=== PATIENT | female | born 1995 | race Hispanic/Latino ===

== ENCOUNTER 2022-12-08 09:38 | Emergency (ER) | payer BC, SELFPAY ==
[2022-12-08] VITALS (19 sets, daily range): BP systolic 100–113; BP diastolic 60–71; PULSE 67–86; RESP 16–18; TEMP 36.1; O2SAT 97–100
--- NOTE | ~2022-12-08 | US_ITS ---
EXAMINATION: US OB <= 14 weeks fetus DATE: 12/08/2022 14:03 INDICATION: Vaginal bleeding. TECHNIQUE: Real-time transabdominal pelvic ultrasound was performed. COMPARISON: None. FINDINGS: The uterus measures 10.1 x 7.7 x 7.5 cm. There is an intrauterine gestational sac. A yolk sac is iden tified. The crown rump length measures 2.7 cm, which correlates with an estimated gestational age of 9 weeks and 3 day(s) (+/-) 6 day(s). heart motion is identified measuring 169 beats per minute (bpm) by M-mode Doppler. There is a small subchorionic hematoma. The right ovary is not visual ized. The left ovary measures 3.2 x 1.9 x 1.7 cm. There is no free fluid in the pelvis. IMPRESSION: 1. Single living intrauterine gestation with estimated date of delivery of 07/10/23. 2. Small subchorionic hematoma. Reviewed, dictated and finalized at location A. IMPRESSION: 1. Single living intrauterine gestation with estimated date of delivery of 07/10. 2. Small subchorionic hematoma.
[2022-12-08 11:47] LABS: Basophils Percent Auto 0.3 % (0.2-1.2); Eosinophils Absolute Auto 0.5 K/mm3 (0-0.3); Eosinophils Percent Auto 5.7 % (0-4.4); Hematocrit 36.1 % (37.0-47.0); Hemoglobin 12.7 g/dL (12.0-15.0); Immature Granulocyte Absolute 0.04 K/mm3 (0.00-0.031); Immature Granulocyte Percent A 0.5 % (0-0.5); Lymphocytes Absolute Auto 2.23 K/mm3 (0.9-3.2); Lymphocytes Percent Auto 28.2 % (18.3-44.2); Mean Corpuscular HGB Conc 35.2 g/dl (32-36); Mean Corpuscular Hemoglobin 30.8 pg (26-34); Mean Corpuscular Volume 87.6 fl (80-100); Monocytes Absolute Auto 0.5 K/mm3 (0.1-0.6); Monocytes Percent Auto 5.9 % (2.6-8.5); Neutrophils Absolute Auto 4.7 K/mm3 (1.3-6.7); Neutrophils Percent Auto 59.4 % (45.5-73.1); Platelet Count Result 254 k/mm3 (150-375); Red Blood Count 4.12 M/mm3 (4.2-5.4); Red Cell Distribution Width 12.3 % (11.5-14.5); White Blood Count 7.9 K/mm3 (4.5-10.0)
--- NOTE | 2022-12-08 14:02 | ED.PREGNANCY ---
HPI - General Chief complaint: Vaginal Bleeding Stated complaint: vag bleed Time Seen by Provider: 12/08/22 11:52 Source: patient and RN notes reviewed Mode of arrival: ambulatory Limitations: language barrier (swazi speaking, stratus video grill associate used) History of Present Illness HPI Narrative: This is a 27 year old female who presents for evaluation of vaginal bleeding with positive test. Patient reports she had positive test 1 week ago. Today she noticed small amount of vaginal bleeding with abdominal cramping. She denies nausea, vomiting, fever. She denies passing clots. She denies dizziness. She has not care yet. Related Data Allergies Allergy/AdvReac Type Severity Reaction Status Date / Time No Known Allergies Allergy Verified 12/08/22 11:38 Review of Systems Review of Systems: All systems reviewed & are unremarkable except as noted in HPI and below PMFSH Past Medical History Medical History (Updated 12/08/22 @ 15:26 by Rima Meza MD) Patient denies medical problems Surgical History Surgical History (Updated 12/08/22 @ 14:06 by Rima Meza MD) No pertinent past surgical history Social History Social History (Updated 12/08/22 @ 14:06 by Rima Meaz MD) Smoking status: Never smoker Exam Const: General: no acute distress and alert Nutritional Appearance: well nourished Orientation/consciousness: patient oriented x3 HENMT: Head: normal to inspection Eyes: EOM: EOMs intact bilaterally Neck: Neck: normal visual inspection Chest: Chest palpation & inspection: normal inspection of the chest Resp: Effort & Inspection: normal respiratory effort Auscultation: clear to auscultation bilaterally Cardio: Rate: regular rate Rhythm: regular rhythm Heart sounds: no murmurs GI: GI Palp: Yes Soft to palpation, No Tenderness to palpation present (GI), No Guarding due to palpation present (GI), No Rigid due to palpation and No Hernia present Auscultation: normal bowel sounds : Other: deferred by patient. Back/Spine/Pelvis: Back: no CVA tenderness Skin: General skin exam: normal color Rashes: no rashes Wounds: no wounds Neuro: General: patient oriented x3, moves all extremities and CN's II-XI intact bilaterally Extrem: General: normal to inspection Psych: Mental Status: mental status grossly normal Affect: normal affect Attitude: cooperative Course Reevaluation(s) Reevaluation #1: I discussed with patient and US finding. I discussed bleeding precautions and pelvis rest. 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 Patient already full dressed so unable to do pelvic exam . She denies bleeding. Date: 12/08/22 Time: 15:21 Vital Signs Vital signs: Vital Signs Temperature 96.9 F L 12/08/22 09:46 Pulse Rate 86 12/08/22 09:46 Respiratory Rate 16 12/08/22 09:46 Blood Pressure 112/61 12/08/22 09:46 Pulse Oximetry 98 12/08/22 09:46 Oxygen Delivery Room Air 12/08/22 09:46 Temperature 96.9 F L 12/08/22 09:46 Pulse Rate 67 12/08/22 11:36 Respiratory Rate 18 12/08/22 11:36 Blood Pressure 110/64 12/08/22 13:46 Pulse Oximetry 100 12/08/22 14:31 Oxygen Delivery Room Air 12/08/22 09:46 MDM - OB/Uterine Contractions MDM Narrative Medical decision making narrative: cbc stable, no significant blood loss. Rh positive so no rhogam needed. Differential Diagnosis Differential diagnosis: Likely other (miscarriage, missed , threatened miscarriage, pancreatitis, subchorinic hemorrhage) Lab Data Attestation: I reviewed the patient's lab results. 12/08/22 11:40 Labs: Lab Results 12/08/22 12/08/22 Range/Units 11:40 15:01 WBC 7.9 (4.5-10.0) K/mm3 RBC 4.12 L (4.2-5.4) M/mm3 Hgb 12.7 (12.0-15.0) g/dL Hct 36.1 L (37.0-47.0) % MCV 87.6 (80-100) fl MCH 30.8 (26-34) pg MCHC 35.2 (32-36) g/dl RDW 1
[2022-12-08 14:55] LABS: Lipase 43 U/L (23-300)
[2022-12-08 15:17] LABS: Appearance Urine Clear (Clear); Bacteria Urine None Seen /hpf; Bilirubin Urine 1+ (Negative); Blood Urine 2+ (Negative); Color Urine Dark Yellow (Yellow); Glucose Urine UA Negative (Negative); Ketones Urine Negative (Negative); Leukocyte Esterase Ur Trace LEU/UL (Negative); Nitrate Urine Negative (Negative); Non Pathogenic Casts 0-2; Protein Urine 1+ mg/dL (Negative); RBC Urine 0-2 /hpf (0-2); Specific Grav Ur 1.034 (1.001-1.035); Squamous Epithelial Cell Urine Few /hpf (Few); WBC Urine 0-5 /hpf
[2022-12-08 15:32] LABS: Add Urine Microscopic? YES
== END 2022-12-08 15:34 | disposition home or self-care (01) ==
PROVIDERS: Emergency Provider General Practice; PCP Registered Nurse
DX: O46.8X1 Other antepartum hemorrhage, first trimester (principal); Z3A.09 9 weeks gestation of pregnancy
CPT/HCPCS: 36415; 76801; 81001; 81025; 83690; 84702; 85025; 85461; 86850; 86900; 86901; 99284